=== PATIENT | male | born 1975 | race Caucasian/White ===

== ENCOUNTER 2021-11-02 08:00 | Outpatient (CLI) | payer OTHER, SELFPAY ==
[2021-11-02 08:22] LABS: Hematocrit 44.9 % (42.0-52.0); Hemoglobin 15.4 g/dL (14.0-18.0); Mean Corpuscular HGB Conc 34.3 g/dl (32-36); Mean Corpuscular Hemoglobin 31.4 pg (26-34); Mean Corpuscular Volume 91.6 fl (80-100); Mean Platelet Volume 9.3 fl (7.4-10.4); Platelet Count Result 273 k/mm3 (150-375); Red Cell Distribution Width 11.9 % (11.5-14.5); White Blood Count 7.3 K/mm3 (4.5-10.0)
[2021-11-02 08:33] LABS: Alanine Aminotransferase 39 U/L (6-50); Albumin Level 4.4 g/dL (3.5-5.1); Alkaline Phosphatase 55 U/L (38-126); Anion Gap 8 mmol/L (8-16); Aspartate Amino Transferase 25 U/L (17-59); Bilirubin,Total 0.4 mg/dL (0.2-1.3); Blood Urea Nitrogen 19 mg/dL (9-20); Calcium 9.1 mg/dL (8.4-10.2); Carbon Dioxide 28 mmol/L (22-30); Chloride 103 mmol/L (98-107); Cholesterol 149 mg/dL (0-200); Estimated Glomerular Filt Rate > 60; Glucose 98 mg/dL (65-110); HDL Direct 38 mg/dL; Potassium 4.2 mmol/L (3.4-5.0); Sodium 139 mmol/L (137-145); Triglycerides 171 mg/dL (<150)
[2021-11-02 08:44] LABS: LDL Cholesterol Direct 85 mg/dL
[2021-11-02 09:03] LABS: Prostate Specific Antigen 0.4 ng/mL (< OR = 4.0)
== END 2021-11-02 08:01 | disposition home or self-care (01) ==
LOC: ANHLAB 08:03
PROVIDERS: PCP Family Medicine; Visit Provider Nurse Practitioner Family
DX: I10 Essential (primary) hypertension (principal); Z12.5 Encounter for screening for malignant neoplasm of prostate; Z13.29 Encounter for screening for other suspected endocrine disorder
CPT/HCPCS: 36415; 80053; 80061; 84153; 84443; 85027

== ENCOUNTER 2022-10-03 11:08 | Emergency (ER) | payer OTHER, SELFPAY ==
[2022-10-03 11:15] VITALS: BP 192/105; PULSE 95; RESP 16; TEMP 36.2; O2SAT 97
--- NOTE | 2022-10-03 12:25 | ED.GENADULT ---
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 He has never had a needlestick before and was quite nervous and anxious. Denies any other symptoms. Related Data Home Medications Medication Instructions Recorded Confirmed alprazolam 0.5 mg tablet 0.5 mg PO BID 03/04/19 11/01/21 Allergies Allergy/AdvReac Type Severity Reaction Status Date / Time No Known Allergies Allergy Verified 11/01/21 08:01 Review of Systems Review of Systems: CONST: No fever. HEENT: No sore throat C/V: No chest pain RESP: No cough GI: No nausea or vomiting or abdominal : No dysuria. M/S: Needlestick to index finger SKIN: Needlestick to finger NEURO: [No headache or focal numbness or weakness] PSYCH: Slightly anxious [facility] Past Medical History Medical History (Updated 10/03/22 @ 14:32 by Lida Kaye MD) BMI 35.0-35.9,adult Elevated blood pressure reading Intradermal nevus Screening for prostate cancer Skin neoplasm Family History Family History Grandparent Hypertension Social History Social History (Updated 11/01/21 @ 08:53 by Israel Stuart RN) Smoking packs per day: 0.2 Smoking cigarettes per day: 4.0 Years smoked: 32 Smoking pack-years: 6.40 Smoking status: Current every day smoker Tobacco type: cigarettes Alcohol intake: former Substance use: never Substance use type: does not use Exam Narrative: EXAMINATION OF ORGAN SYSTEMS/BODY AREAS: Constitutional: Vital signs per nursing GENERAL:[No acute distress, non-toxic appearing.] HEAD: Normal with no signs of head trauma. EYES: EOMI, conjunctiva normal ENT: Hearing grossly intact LUNGS: Nonlabored breathing. HEART: [Regular rate and rhythm] ABD: Nondistended EXT: Normal range of motion, tiny spot to side of finger where he was stuck with needle SKIN: per above NEURO: [Alert and oriented x 3. No gross focal sensory or strength deficits.] PSYCH: Normal affect Course Vital Signs Vital signs: Vital Signs Temperature 97.2 F L 10/03/22 11:15 Pulse Rate 95 10/03/22 11:15 Respiratory Rate 16 10/03/22 11:15 Blood Pressure 192/105 H 10/03/22 11:15 Pulse Oximetry 97 10/03/22 11:15 Oxygen Delivery Room Air 10/03/22 11:15 Temperature 97.2 F L 10/03/22 11:15 Pulse Rate 95 10/03/22 11:15 Respiratory Rate 16 10/03/22 11:15 Blood Pressure 192/105 H 10/03/22 11:15 Pulse Oximetry 97 10/03/22 11:15 Oxygen Delivery Room Air 10/03/22 11:15 Medical Decision Making MDM Narrative Medical decision making narrative: 47-year-old male presenting after needlestick, it was from an intramuscular injection, no venous blood arterial blood in the needle, and very shallow, superficial breakage of skin on his finger. Discussed with the patient that there was a very low likelihood of seroconversion, and regardless we are obtaining HIV and hepatitis from the patient, he did not want to wait for labs to come back but he did leave a phone number for us to contact him. We did discuss postexposure prophylaxis and after shared decision making, we did agree he would likely not benefit from this. We did also discuss his high blood pressure, he states that he does have history of hypertension but he is here with asymptomatic hypertension. No signs or symptoms of end organ dysfunction; no chest pain or shortness of breath, neurological deficits, severe headaches, visual disturbance, oliguria, or symptoms of dissection/AAA). He is already on blood pressure m
[2022-10-03 12:50] LABS: Hepatitis B Surface Anti Res Negative
[2022-10-03 12:57] LABS: Hepatitis C Virus Antibody Negative (Negative)
[2022-10-03 14:10] LABS: HIV 1/2 Ab P24 Ag Result Negative (Negative)
== END 2022-10-03 14:41 | disposition home or self-care (01) ==
PROVIDERS: Emergency Provider Emergency Medicine; PCP Family Medicine
DX: S61.231A Puncture wound without foreign body of left index finger without damage to nail, initial encounter (principal); F17.210 Nicotine dependence, cigarettes, uncomplicated; W46.1XXA Contact with contaminated hypodermic needle, initial encounter
CPT/HCPCS: 36415; 86703; 86706; 86803; 87389; 99283; G0432

== ENCOUNTER 2023-02-12 08:45 | Outpatient (CLI) | payer OTHER, SELFPAY ==
--- NOTE | ~2023-02-12 | US_ITS ---
US abdomen limited INDICATION: Right upper quadrant pain PROCEDURE: Realtime right upper abdominal ultrasound. COMPARISON: No prior studies for comparison. FINDINGS: The pancreas is normal without focal mass or pancreatic ductal dilation. Liver echotexture is increased, consistent with fatty infiltration. There is normal directional flow in the portal ve in. The gallbladder is normal without stones, gallbladder wall thickening or pericholecystic fluid. Comm on bile duct measures 4.5 mm. No sonographic Ochoa's sign. IMPRESSION: 1: Hepatic steatosis. Reviewed, dictated and finalized at [facility]. [facility]ER IMPRESSION: 1: Hepatic steatosis.
[2023-02-12 09:46] LABS: Basophils Percent Auto 0.3 % (0.2-1.2); Eosinophils Absolute Auto 0.9 K/mm3 (0-0.3); Eosinophils Percent Auto 9.7 % (0-4.4); Hematocrit 47.5 % (42.0-52.0); Hemoglobin 16.2 g/dL (14.0-18.0); Immature Granulocyte Absolute 0.02 K/mm3 (0.00-0.031); Immature Granulocyte Percent A 0.2 % (0-0.5); Lymphocytes Absolute Auto 2.52 K/mm3 (0.9-3.2); Lymphocytes Percent Auto 28.3 % (18.3-44.2); Mean Corpuscular HGB Conc 34.1 g/dl (32-36); Mean Platelet Volume 9.6 fl (7.4-10.4); Monocytes Absolute Auto 0.6 K/mm3 (0.1-0.6); Monocytes Percent Auto 6.5 % (2.6-8.5); Neutrophils Absolute Auto 4.9 K/mm3 (1.3-6.7); Platelet Count Result 281 k/mm3 (150-375); Red Blood Count 5.22 M/mm3 (4.6-6.20); Red Cell Distribution Width 12.1 % (11.5-14.5); White Blood Count 8.9 K/mm3 (4.5-10.0)
[2023-02-12 09:58] LABS: Alanine Aminotransferase 39 U/L (6-50); Albumin Level 4.5 g/dL (3.5-5.1); Alkaline Phosphatase 44 U/L (38-126); Amylase 64 U/L (30-110); Anion Gap 12 mmol/L (8-16); Aspartate Amino Transferase 26 U/L (17-59); Bilirubin,Total 1.2 mg/dL (0.2-1.3); Blood Urea Nitrogen 15 mg/dL (9-20); Carbon Dioxide 21 mmol/L (22-30); Chloride 106 mmol/L (98-107); Estimated Glomerular Filt Rate > 60; Glucose 97 mg/dL (65-110); Lipase 49 U/L (23-300); Potassium 3.9 mmol/L (3.4-5.0); Sodium 139 mmol/L (137-145)
== END 2023-02-12 08:46 | disposition home or self-care (01) ==
PROVIDERS: PCP Family Medicine; Visit Provider Physician Assistant Medical
DX: R10.11 Right upper quadrant pain (principal); K76.0 Fatty (change of) liver, not elsewhere classified
CPT/HCPCS: 36415; 76705; 80053; 82150; 83690; 85025

== ENCOUNTER 2023-06-27 10:32 | Outpatient (CLI) | payer OTHER, SELFPAY ==
[2023-06-27 10:58] LABS: Cholesterol 180 mg/dL (0-200); HDL Direct 37 mg/dL; Triglycerides 193 mg/dL (<150)
[2023-06-27 11:09] LABS: LDL Cholesterol Direct 123 mg/dL
[2023-06-27 11:28] LABS: Prostate Specific Antigen 0.4 ng/mL (< OR = 4.0)
== END 2023-06-27 10:33 | disposition home or self-care (01) ==
LOC: ANHLAB 10:33
PROVIDERS: PCP Family Medicine; Visit Provider Nurse Practitioner Family
DX: F41.9 Anxiety disorder, unspecified (principal); Z12.5 Encounter for screening for malignant neoplasm of prostate; I10 Essential (primary) hypertension
CPT/HCPCS: 36415; 80061; 84153; 84443

== ENCOUNTER 2023-07-12 00:51 | Emergency (ER) | payer OTHER, SELFPAY ==
[2023-07-12] VITALS (7 sets, daily range): BP systolic 120–153; BP diastolic 82–118; PULSE 79–98; RESP 15–26; TEMP 36.9; O2SAT 96–98
--- NOTE | ~2023-07-12 | CT_ITS ---
EXAMINATION: CT abdomen pelvis w con DATE: 07/12/2023 01:58 INDICATION: Epigastric and right upper quadrant abdominal pain TECHNIQUE: Computed tomography (CT) of the abdomen and pelvis was performed with 100 CC Omnipaque 350 intravenous contrast. Automated exposure control and iterative reconstruction technique were employe d. Exam dose: 1313.40 mGy-cm total exam DLP. COMPARISON: 02/12/2023 Limited abdominal ultrasound examination FINDINGS: The lung bases are clear. Normal heart size. No pericardial or pleural effusion. Diffuse hepatic steatosis. No hepatic, splenic, pancreatic, adrenal or renal space occupying mass les ion is evident. No bile duct or pancreatic duct dilatation. No urinary tract calculus or hydroureteronephrosis. Normal caliber of the abdominal aorta. No intraperitoneal or retroperitoneal or pelvic mass lesion or adenopathy or ascites. Normal appendix. There is some thickening of the wall of the ileum and minimal adjacent fat stranding suggesting ileit is. No small bowel stricture or obstruction or pneumatosis is noted. No intraperitoneal free air. Small fat-containing umbilical hernia and small fat-containing inguinal hernias. Included skeletal structures are unremarkable. No suspicious osteolytic or osteoblastic lesions are n oted. IMPRESSION: Normal appendix Nonspecific mild thickening of the wall of the ileum, suggesting nonspecific ileitis. No bowel obstru ction or free air Hepatic steatosis Reviewed, dictated and finalized at [facility]. Reviewed, dictated and finalized at [facility]. IMPRESSION: Normal appendix Nonspecific mild thickening of the wall of the ileum, suggesting nonspecific il eitis. No bowel obstruction or free air Hepatic steatosis
[2023-07-12 01:06] LABS: Basophils Absolute Auto 0.1 K/mm3 (0.0-0.1); Basophils Percent Auto 0.8 % (0.2-1.2); Eosinophils Absolute Auto 0.4 K/mm3 (0-0.3); Eosinophils Percent Auto 4.3 % (0-4.4); Hematocrit 47.7 % (42.0-52.0); Hemoglobin 16.4 g/dL (14.0-18.0); Immature Granulocyte Absolute 0.03 K/mm3 (0.00-0.031); Immature Granulocyte Percent A 0.3 % (0-0.5); Lymphocytes Absolute Auto 4.34 K/mm3 (0.9-3.2); Lymphocytes Percent Auto 46.7 % (18.3-44.2); Mean Corpuscular HGB Conc 34.4 g/dl (32-36); Mean Corpuscular Hemoglobin 31.1 pg (26-34); Mean Corpuscular Volume 90.5 fl (80-100); Mean Platelet Volume 9.5 fl (7.4-10.4); Monocytes Absolute Auto 0.7 K/mm3 (0.1-0.6); Monocytes Percent Auto 7.4 % (2.6-8.5); Neutrophils Absolute Auto 3.8 K/mm3 (1.3-6.7); Neutrophils Percent Auto 40.5 % (45.5-73.1); Platelet Count Result 270 k/mm3 (150-375); Red Blood Count 5.27 M/mm3 (4.6-6.20); White Blood Count 9.3 K/mm3 (4.5-10.0)
--- NOTE | 2023-07-12 01:11 | ECG_ITS ---
SEE SCANNED COPY FOR CONFIRMED REPORT MTDD
[2023-07-12 01:16] LABS: Alanine Aminotransferase 66 U/L (6-50); Albumin Level 4.5 g/dL (3.5-5.1); Alkaline Phosphatase 54 U/L (38-126); Anion Gap 7 mmol/L (4-12); Aspartate Amino Transferase 32 U/L (17-59); Bilirubin,Total 0.8 mg/dL (0.2-1.3); Blood Urea Nitrogen 16 mg/dL (9-20); Calcium 9.3 mg/dL (8.4-10.2); Carbon Dioxide 25 mmol/L (22-30); Chloride 109 mmol/L (98-107); Estimated CRCL calculation 93 ml/min; Estimated Glomerular Filt Rate > 60; Glucose 113 mg/dL (65-110); Lipase 416 U/L (23-300); Potassium 3.9 mmol/L (3.4-5.0); Sodium 141 mmol/L (137-145)
[2023-07-12] MEDS: ACETAMINOPHEN 500 MG TABLET 1000 MG PO (01:18)
[2023-07-12] MEDS: MAG HYDROX/AL HYDROX/SIMETH 30 ML UDC PO (01:18)
[2023-07-12] MEDS: KETOROLAC 15 MG/ML VIAL (*BKC) IV PUSH (01:19)
[2023-07-12 01:24] LABS: Appearance Urine Clear (Clear); Bacteria Urine None Seen /hpf; Bilirubin Urine Negative (Negative); Blood Urine Negative (Negative); Color Urine Yellow (Yellow); Glucose Urine UA Negative (Negative); Ketones Urine Negative (Negative); Leukocyte Esterase Ur Negative LEU/UL (Negative); Nitrate Urine Negative (Negative); Protein Urine Trace mg/dL (Negative); RBC Urine 0-2 /hpf (0-2); Specific Grav Ur 1.029 (1.001-1.035); Squamous Epithelial Cell Urine None Seen /hpf (Few); WBC Urine 0-5 /hpf (0-3)
--- NOTE | 2023-07-12 01:31 | ED.GENADULT ---
HPI - General Adult General Chief complaint: Abdominal Pain Stated complaint: abd pain, gall bladder attack Time Seen by Provider: 07/12/23 00:59 History of Present Illness HPI narrative: this is a 48-year-old male presenting ED with chief complaint of abdominal pain. Around midnight patient started experiencing burning pain in the epigastric and upper right abdomen. Associated with episode of nausea vomiting and diarrhea. Patient took Zantac for symptoms. After the initial episode his pain improved rapidly. This time patient is denying fevers chills chest pain difficulty breathing. Abdominal pain is improving. No urinary symptoms Related Data Allergies Allergy/AdvReac Type Severity Reaction Status Date / Time lisinopril AdvReac Mild Cough Verified 06/17/23 12:41 ON LICENSE OF [facility] Past Medical History Medical History BMI 35.0-35.9,adult BMI 36.0-36.9,adult BMI 37.0-37.9, adult BMI 38.0-38.9,adult Elevated blood pressure reading Intradermal nevus Screening for prostate cancer Skin neoplasm Family History Family History Grandparent Hypertension Father No problems noted. Mother Hypertension Sibling No problems noted. Social History Social History Smoking packs per day: 0.2 Smoking cigarettes per day: 4.0 Years smoked: 32 Smoking pack-years: 6.40 Smoking status: Current every day smoker Tobacco type: cigarettes Smoking end date: 12/23/22 Alcohol intake: former Substance use: never Substance use type: does not use Do You Feel Safe in your Home?: Yes Lack of Transportation: No Lack of Food: Never True Current Housing: I Have Housing Concerned About Future Housing: No Difficulty Paying Gas/Electric Bills: No Difficulty Paying for Meds: No Currently Unemployed: No Education: Trade/Vocational Certificate Difficulty w/ Childcare or Family Care: No Living arrangements: with family Occupation/Education: occupation Additional occupation/education comments: [employer] Gender identity (if verbalized by the patient): Male Exam Narrative: APPEARANCE: No apparent distress. Head: atraumatic. EYES: EOMI, NOSE: Atraumatic NECK: Trachea midline RESPIRATORY: No increased rate of breathing CARDIOVASCULAR: RRR, ABDOMINAL: Soft nontender no guarding or rebound, point of care right upper quadrant ultrasound revealed a normal thickening, no pericholecystic fluid negative sonographic use MUSCULOSKELETAl: No obvious deformities NEURO: Alert. Moving 4/4 extremities SKIN:: Warm, dry. Normal color PSYCHIATRIC: Normal affect Course Vital Signs Vital signs: Vital Signs Pulse Rate 87 07/12/23 01:02 Respiratory Rate 15 07/12/23 01:02 Blood Pressure 153/118 H 07/12/23 01:02 Pulse Oximetry 98 07/12/23 01:02 Temperature 98.4 F 07/12/23 01:17 Pulse Rate 90 07/12/23 01:31 Respiratory Rate 24 H 07/12/23 01:31 Blood Pressure 147/96 H 07/12/23 01:31 Pulse Oximetry 98 07/12/23 01:15 Oxygen Delivery Room Air 07/12/23 01:06 Medical Decision Making MDM Narrative Medical decision making narrative: -Course: for 48-year-old male presenting with epigastric and quadrant abdominal pain. Laboratory studies normal limits. CT showed evidence enteritis. Symptoms improve with Toradol Tylenol and Maalox. On re-evaluation abdominal exam is still benign. VSS. Patient is comfortable going home following up his primary care physician as needed. Given return precautions. 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
[2023-07-12 01:37] LABS: Add Urine Microscopic? YES
== END 2023-07-12 02:59 | disposition home or self-care (01) ==
PROVIDERS: Emergency Provider Emergency Medicine; PCP Family Medicine
DX: R10.13 Epigastric pain (principal); Z87.891 Personal history of nicotine dependence; R94.31 Abnormal electrocardiogram [ECG] [EKG]
CPT/HCPCS: 36415; 74177; 80053; 81001; 83690; 85025; 93005; 96374; 99284; A9270; J1885; Q9967

== ENCOUNTER 2024-08-05 08:44 | Outpatient (CLI) | payer OTHER, SELFPAY ==
[2024-08-05 09:01] LABS: Basophils Absolute Auto 0.1 K/mm3 (0.0-0.1); Basophils Percent Auto 1.1 % (0.2-1.2); Eosinophils Absolute Auto 0.6 K/mm3 (0-0.3); Eosinophils Percent Auto 7.6 % (0-4.4); Hemoglobin 15.3 g/dL (14.0-18.0); Immature Granulocyte Absolute 0.02 K/mm3 (0.00-0.031); Immature Granulocyte Percent A 0.3 % (0-0.5); Lymphocytes Absolute Auto 2.44 K/mm3 (0.9-3.2); Lymphocytes Percent Auto 33.5 % (18.3-44.2); Mean Corpuscular Hemoglobin 31.2 pg (26-34); Mean Corpuscular Volume 91.6 fl (80-100); Mean Platelet Volume 9.2 fl (7.4-10.4); Monocytes Absolute Auto 0.5 K/mm3 (0.1-0.6); Monocytes Percent Auto 7.4 % (2.6-8.5); Neutrophils Absolute Auto 3.7 K/mm3 (1.3-6.7); Neutrophils Percent Auto 50.1 % (45.5-73.1); Platelet Count Result 225 k/mm3 (150-375); Red Blood Count 4.91 M/mm3 (4.6-6.20); Red Cell Distribution Width 12.1 % (11.5-14.5); White Blood Count 7.3 K/mm3 (4.5-10.0)
[2024-08-05 10:18] LABS: Alanine Aminotransferase 35 U/L (6-50); Albumin Level 4.3 g/dL (3.5-5.1); Alkaline Phosphatase 49 U/L (38-126); Anion Gap 7 mmol/L (4-12); Aspartate Amino Transferase 29 U/L (17-59); Bilirubin,Total 0.6 mg/dL (0.2-1.3); Blood Urea Nitrogen 17 mg/dL (9-20); Calcium 8.7 mg/dL (8.4-10.2); Carbon Dioxide 26 mmol/L (22-30); Chloride 107 mmol/L (98-107); Cholesterol 157 mg/dL (0-200); Estimated Glomerular Filt Rate > 60; Glucose 95 mg/dL (65-110); HDL Direct 37 mg/dL; Potassium 4.1 mmol/L (3.4-5.0); Sodium 140 mmol/L (137-145); Triglycerides 96 mg/dL (<150)
[2024-08-05 10:29] LABS: LDL Cholesterol Direct 95 mg/dL
[2024-08-05 10:49] LABS: Prostate Specific Antigen 0.6 ng/mL (< OR = 4.0)
== END 2024-08-05 08:45 | disposition home or self-care (01) ==
LOC: ANHLAB 08:45
PROVIDERS: PCP Family Medicine; Visit Provider Nurse Practitioner Family
DX: F41.9 Anxiety disorder, unspecified (principal); I10 Essential (primary) hypertension; Z13.220 Encounter for screening for lipoid disorders; Z13.29 Encounter for screening for other suspected endocrine disorder; Z12.5 Encounter for screening for malignant neoplasm of prostate; Z72.0 Tobacco use; Z13.1 Encounter for screening for diabetes mellitus
CPT/HCPCS: 36415; 80053; 80061; 84153; 84443; 85025; G0103